=== PATIENT | female | born 1960 | race African-American/Black ===

== ENCOUNTER 2017-12-25 13:10 | Outpatient (CLI) | payer OTHER ==
--- NOTE | 2017-12-25 15:58 | ULT ---
THYROID ULTRASOUND: 12/25/2017 HISTORY: Thyromegaly. FINDINGS: The right lobe of the thyroid gland measures 4.4 cm x 1.7 cm x 1.8 cm, with the left lobe measuring 4 .1 cm x 1.4 cm x 1.2 cm. The thyroid isthmus measures 0.4 cm in AP dimensions. Within the mid portion of the right lobe of the thyroid gland, there is a circumscribed, slightly het erogeneous nodule, measuring 1.3 cm, with a hypoechoic nodule in the inferior right lobe of the thyro id gland, measuring 0.9 cm, with suggestion of a punctate echogenic focus that may represent a small calcification within this nodule. There is a tiny, 0.4 cm, hypoechoic nodule seen at the junction of the mid portion of the superior pole of the right lobe of the thyroid gland. There is a small, heterogeneous/hypoechoic nodule seen within the mid portion of the left lobe of the thyroid gland, measuring 0.4 cm. A larger, mildly heterogeneous nodule is seen in the inferior pole of the left lobe of the thyroid gland, measuring 1 cm. The left lobe of the thyroid gland is mildly lobulated. IMPRESSION: Multinodular thyroid gland. Follow-up evaluation is recommended. POS: [facility]
== END 2017-12-25 13:11 | disposition home or self-care (01) ==
LOC: SCSULT 13:10
PROVIDERS: ATTEND Nurse Practitioner Family
DX: E04.2 Nontoxic multinodular goiter (principal)
CPT/HCPCS: 76536

== ENCOUNTER 2018-01-04 07:49 | Outpatient (CLI) | payer OTHER | END 2018-01-04 07:50 | disposition home or self-care (01) | LOC: BICMAMMO 07:49 | PROVIDERS: ATTEND Nurse Practitioner Family | DX: Z12.31 Encounter for screening mammogram for malignant neoplasm of breast (principal); Z80.3 Family history of malignant neoplasm of breast | CPT/HCPCS: 77063; 77067 ==

== ENCOUNTER 2024-07-01 09:56 | Outpatient (CLI) | payer BC | END 2024-07-01 09:57 | disposition home or self-care (01) | LOC: BICCT 09:56 | PROVIDERS: ATTEND Nurse Practitioner | DX: R10.9 Unspecified abdominal pain (principal) | CPT/HCPCS: 74176 ==